=== PATIENT | male | born 1960 | race Caucasian/White ===

== ENCOUNTER 2022-12-12 16:10 | Inpatient (IN) | payer BC ==
[~2022-12-12] VITALS: Ht 177.8 cm; Wt 127.0 kg
[2022-12-12] MEDS ORDERED: SODIUM CHLORIDE 0.9% 1000ML 1,000 ML IV STA (16:36)
[2022-12-12 16:44] LABS: BASOPHILS % 0.4 % (0.0-1.0); EOSINOPHILS # (AUTO) 0.3 (0.0-0.4); EOSINOPHILS % 2.7 % (0.0-6.0); HEMATOCRIT 39.8 % (38.2-49.6); HEMOGLOBIN 12.9 g/dL (14.0-18.0); LYMPHOCYTES # (AUTO) 1.3 (1.0-3.2); LYMPHOCYTES % 14.1 % (18.0-39.1); MEAN CORPUSCULAR HEMOGLOBIN 27.8 pg (28-32); MEAN CORPUSCULAR HGB CONC 32.4 g/dL (31-35); MEAN CORPUSCULAR VOLUME 85.8 fL (81-99); MONOCYTES # (AUTO) 0.8 (0.2-0.8); MONOCYTES % 8.5 % (4.4-11.3); NEUTROPHILS % 73.9 % (38.7-80.0); PLATELET COUNT 197 x10e3/uL (140-360); RED BLOOD COUNT 4.64 x10e6/uL (4.3-5.7); RED CELL DISTRIBUTION WIDTH 13.2 % (11.7-14.4)
[2022-12-12 16:56] LABS: ALBUMIN 3.8 g/dL (3.5-5.0); ANION GAP 14.1 mmol/L (8-16); CALCIUM 9.9 mg/dL (8.4-10.2); CREATININE, SERUM 0.85 mg/dL (0.72-1.25); POTASSIUM 4.1 mmol/L (3.5-5.1)
[2022-12-12 17:19] LABS: CLARITY,URINE CLOUDY (CLEAR); COLOR,URINE RED (YELLOW); KETONES,URINE TRACE (NEGATIVE); LEUKOCYTE ESTERASE ,URINE NEGATIVE (NEGATIVE); NITRITE,URINE NEGATIVE (NEGATIVE); PROTEIN,URINE DIPSTICK >=300 (NEGATIVE); URINE UROBILINOGEN 0.2 mg/dL (0.2 - 1)
[2022-12-12 17:20] LABS: BACTERIA,URINE FEW /HPF; RBC,URINE >50 /HPF (0-5)
[2022-12-12] MEDS ORDERED: Morphine 4mg INJECTION 4 MG/ML INJ IV PRN (18:30)
[2022-12-12 19:28] LABS: CREATINE KINASE MB 2.6 ng/mL (0-5.0)
[2022-12-12 20:15] VITALS: BP 147/87
[2022-12-12] MEDS ORDERED: ASPIRIN 81 MG CHEW TAB PO ONE (20:15)
[2022-12-12] MEDS: SODIUM CHLORIDE 0.9% 1000ML 1,000 ML IV SCH (21:25)
[2022-12-12] MEDS ORDERED: GLIMEPIRIDE4 MG PO (22:30)
[2022-12-12] MEDS ORDERED: NAPROXEN500 MG PO (22:30)
[2022-12-12] MEDS ORDERED: LISINOPRIL5 MG PO (22:30)
[2022-12-12] MEDS ORDERED: METFORMIN HCL500 MG PO (22:30)
[2022-12-12 22:51] VITALS: BP 147/87
[2022-12-13] VITALS (9 sets, daily range): BP systolic 119–162; BP diastolic 76–109
[2022-12-13] MEDS ORDERED: DEXTROSE 50% SYRINGE 50 ML IV PRN
[2022-12-13 00:37] LABS: CREATINE KINASE MB 1.5 ng/mL (0-5.0)
[2022-12-13 05:28] LABS: BASOPHILS % 0.3 % (0.0-1.0); EOSINOPHILS # (AUTO) 0.3 (0.0-0.4); EOSINOPHILS % 3.7 % (0.0-6.0); HEMATOCRIT 34.6 % (38.2-49.6); HEMOGLOBIN 11.6 g/dL (14.0-18.0); LYMPHOCYTES # (AUTO) 1.5 (1.0-3.2); LYMPHOCYTES % 17.5 % (18.0-39.1); MEAN CORPUSCULAR HEMOGLOBIN 28.3 pg (28-32); MEAN CORPUSCULAR HGB CONC 33.5 g/dL (31-35); MEAN CORPUSCULAR VOLUME 84.4 fL (81-99); MONOCYTES # (AUTO) 0.7 (0.2-0.8); MONOCYTES % 7.8 % (4.4-11.3); NEUTROPHILS # (AUTO) 6.2 (2.1-6.9); NEUTROPHILS % 70.6 % (38.7-80.0); PLATELET COUNT 161 x10e3/uL (140-360); RED CELL DISTRIBUTION WIDTH 13.4 % (11.7-14.4)
[2022-12-13] MEDS: SODIUM CHLORIDE 0.9% 1000ML 1,000 ML IV SCH ×3 (05:32→18:30)
[2022-12-13 05:54] LABS: MAGNESIUM 1.8 MG/DL (1.3-2.1)
[2022-12-13 05:57] LABS: ALBUMIN 3.2 g/dL (3.5-5.0); ALBUMIN/GLOBULIN RATIO 0.9 (0.8-2.0); ANION GAP 12.9 mmol/L (8-16); CALCIUM 8.9 mg/dL (8.4-10.2); CREATININE, SERUM 0.8 mg/dL (0.72-1.25); POTASSIUM 3.9 mmol/L (3.5-5.1)
[2022-12-13] MEDS: INSULIN LISPRO 100 UNIT/1 ML 3ML VIAL SQ SCH ×4 (07:30→21:00)
[2022-12-13 08:17] LABS: CREATINE KINASE MB 1.2 ng/mL (0-5.0)
[2022-12-14] VITALS (7 sets, daily range): BP systolic 143–162; BP diastolic 74–109
[2022-12-14] MEDS: SODIUM CHLORIDE 0.9% 1000ML 1,000 ML IV SCH ×3 (02:07→18:30)
[2022-12-14] MEDS: INSULIN LISPRO 100 UNIT/1 ML 3ML VIAL SQ SCH ×4 (07:30→21:00)
[2022-12-14] MEDS ORDERED: PEG (High)/E-LYTE SOLN 4,000 ML BTL PO ONE (09:00)
[2022-12-14 10:19] LABS: BASOPHILS % 0.6 % (0.0-1.0); EOSINOPHILS # (AUTO) 0.3 (0.0-0.4); EOSINOPHILS % 5.1 % (0.0-6.0); HEMATOCRIT 36.8 % (38.2-49.6); LYMPHOCYTES # (AUTO) 1.4 (1.0-3.2); LYMPHOCYTES % 20.2 % (18.0-39.1); MEAN CORPUSCULAR HEMOGLOBIN 27.7 pg (28-32); MEAN CORPUSCULAR HGB CONC 32.6 g/dL (31-35); MONOCYTES # (AUTO) 0.4 (0.2-0.8); MONOCYTES % 6.6 % (4.4-11.3); NEUTROPHILS # (AUTO) 4.5 (2.1-6.9); NEUTROPHILS % 67.2 % (38.7-80.0); PLATELET COUNT 165 x10e3/uL (140-360); RED BLOOD COUNT 4.33 x10e6/uL (4.3-5.7); RED CELL DISTRIBUTION WIDTH 12.9 % (11.7-14.4)
[2022-12-14 10:32] LABS: ALBUMIN 3.3 g/dL (3.5-5.0); ALBUMIN/GLOBULIN RATIO 0.9 (0.8-2.0); CALCIUM 9.3 mg/dL (8.4-10.2); CREATININE, SERUM 0.76 mg/dL (0.72-1.25); MAGNESIUM 1.9 MG/DL (1.3-2.1)
[2022-12-14] MEDS ORDERED: CYANOCOBALAMIN INJ 1,000 MCG/ML VIAL IM ONE (23:30)
[2022-12-15] VITALS (9 sets, daily range): BP systolic 128–148; BP diastolic 90–99
[2022-12-15] MEDS: SODIUM CHLORIDE 0.9% 1000ML 1,000 ML IV SCH ×3 (06:24→18:00)
[2022-12-15 07:01] LABS: BASOPHILS % 0.5 % (0.0-1.0); EOSINOPHILS # (AUTO) 0.4 (0.0-0.4); EOSINOPHILS % 5.8 % (0.0-6.0); HEMATOCRIT 34.9 % (38.2-49.6); HEMOGLOBIN 12.1 g/dL (14.0-18.0); LYMPHOCYTES # (AUTO) 1.5 (1.0-3.2); LYMPHOCYTES % 22.2 % (18.0-39.1); MEAN CORPUSCULAR HEMOGLOBIN 30.5 pg (28-32); MEAN CORPUSCULAR HGB CONC 34.7 g/dL (31-35); MEAN CORPUSCULAR VOLUME 87.9 fL (81-99); MONOCYTES # (AUTO) 0.5 (0.2-0.8); MONOCYTES % 7.1 % (4.4-11.3); NEUTROPHILS # (AUTO) 4.2 (2.1-6.9); NEUTROPHILS % 63.9 % (38.7-80.0); PLATELET COUNT 145 x10e3/uL (140-360); RED BLOOD COUNT 3.97 x10e6/uL (4.3-5.7); RED CELL DISTRIBUTION WIDTH 14.5 % (11.7-14.4)
[2022-12-15 07:19] LABS: ALBUMIN 3.1 g/dL (3.5-5.0); ALBUMIN/GLOBULIN RATIO 0.8 (0.8-2.0); ANION GAP 12.6 mmol/L (8-16); CALCIUM 8.9 mg/dL (8.4-10.2); CREATININE, SERUM 0.75 mg/dL (0.72-1.25); MAGNESIUM 1.9 MG/DL (1.3-2.1); POTASSIUM 3.6 mmol/L (3.5-5.1)
[2022-12-15] MEDS: INSULIN LISPRO 100 UNIT/1 ML 3ML VIAL SQ SCH ×4 (07:30→20:37)
[2022-12-15] MEDS: CYANOCOBALAMIN INJ 1,000 MCG/ML VIAL IM SCH (09:00)
[2022-12-15] MEDS ORDERED: IRON SUCROSE 100 MG in SODIUM CHLORIDE 0.9% 100 ML IV SCH (09:00)
[2022-12-16] VITALS (8 sets, daily range): BP systolic 128–156; BP diastolic 79–94
[2022-12-16] MEDS: SODIUM CHLORIDE 0.9% 1000ML 1,000 ML IV SCH (02:21)
[2022-12-16 05:15] LABS: BASOPHILS % 0.7 % (0.0-1.0); EOSINOPHILS # (AUTO) 0.3 (0.0-0.4); HEMATOCRIT 38.1 % (38.2-49.6); HEMOGLOBIN 12.2 g/dL (14.0-18.0); LYMPHOCYTES # (AUTO) 1.5 (1.0-3.2); MEAN CORPUSCULAR HEMOGLOBIN 27.5 pg (28-32); MEAN CORPUSCULAR VOLUME 85.8 fL (81-99); MONOCYTES # (AUTO) 0.4 (0.2-0.8); NEUTROPHILS # (AUTO) 3.8 (2.1-6.9); PLATELET COUNT 186 x10e3/uL (140-360); RED BLOOD COUNT 4.44 x10e6/uL (4.3-5.7); RED CELL DISTRIBUTION WIDTH 12.8 % (11.7-14.4)
[2022-12-16 05:26] LABS: INR 1.14; PROTHROMBIN TIME 14.8 seconds (11.9-14.5)
[2022-12-16 05:36] LABS: ALBUMIN 3.2 g/dL (3.5-5.0); ALBUMIN/GLOBULIN RATIO 0.9 (0.8-2.0); ANION GAP 12.4 mmol/L (8-16); CREATININE, SERUM 0.83 mg/dL (0.72-1.25); MAGNESIUM 1.9 MG/DL (1.3-2.1); POTASSIUM 3.4 mmol/L (3.5-5.1)
[2022-12-16] MEDS: INSULIN LISPRO 100 UNIT/1 ML 3ML VIAL SQ SCH ×4 (07:30→20:36)
[2022-12-16] MEDS: DEXTROSE 5%/0.45% SOD CHL 1,000 ML IV SCH ×2 (09:15→20:30)
[2022-12-16] MEDS: CYANOCOBALAMIN INJ 1,000 MCG/ML VIAL IM SCH (09:19)
[2022-12-16] MEDS: POTASSIUM CHLORIDE 10MEQ/100ML 100 ML IV SCH ×3 (12:39→16:59)
[2022-12-16] MEDS: IRON SUCROSE 100 MG in SODIUM CHLORIDE 0.9% 100 ML IV SCH (17:41)
[2022-12-16] MEDS ORDERED: METRONIDAZOLE 500 MG TAB PO ONE (20:15)
[2022-12-16] MEDS ORDERED: NEOMYCIN SULFATE 500 MG TAB PO ONE (20:15)
[2022-12-16] MEDS: NEOMYCIN SULFATE 500 MG TAB PO ONE (20:25)
[2022-12-17] VITALS (9 sets, daily range): BP systolic 124–140; BP diastolic 72–97
[2022-12-17] MEDS ORDERED: NEOMYCIN SULFATE 500 MG TAB PO STA (05:36)
[2022-12-17] MEDS: NEOMYCIN SULFATE 500 MG TAB PO ONE (05:45)
[2022-12-17 05:48] LABS: BASOPHILS # (AUTO) 0.1 (0.0-0.1); BASOPHILS % 0.8 % (0.0-1.0); EOSINOPHILS # (AUTO) 0.4 (0.0-0.4); EOSINOPHILS % 5.3 % (0.0-6.0); HEMATOCRIT 38.2 % (38.2-49.6); HEMOGLOBIN 12.4 g/dL (14.0-18.0); LYMPHOCYTES # (AUTO) 1.5 (1.0-3.2); LYMPHOCYTES % 22.3 % (18.0-39.1); MEAN CORPUSCULAR HEMOGLOBIN 27.9 pg (28-32); MEAN CORPUSCULAR HGB CONC 32.5 g/dL (31-35); MEAN CORPUSCULAR VOLUME 85.8 fL (81-99); MONOCYTES # (AUTO) 0.5 (0.2-0.8); MONOCYTES % 7.3 % (4.4-11.3); NEUTROPHILS # (AUTO) 4.2 (2.1-6.9); NEUTROPHILS % 63.7 % (38.7-80.0); PLATELET COUNT 191 x10e3/uL (140-360); RED BLOOD COUNT 4.45 x10e6/uL (4.3-5.7); RED CELL DISTRIBUTION WIDTH 12.9 % (11.7-14.4)
[2022-12-17] MEDS ORDERED: METRONIDAZOLE 500 MG TAB PO ONE (06:00)
[2022-12-17 06:11] LABS: ALANINE AMINOTRANSFERASE 49 IU/L (0-55); ALBUMIN 3.2 g/dL (3.5-5.0); ALBUMIN/GLOBULIN RATIO 0.9 (0.8-2.0); ALKALINE PHOSPHATASE 74 IU/L (40-150); ANION GAP 12.3 mmol/L (8-16); BLOOD UREA NITROGEN < 5 mg/dL (7-26); CARBON DIOXIDE 21 mmol/L (22-29); CHLORIDE 107 mmol/L (98-107); CREATININE, SERUM 0.79 mg/dL (0.72-1.25); GLUCOSE 153 mg/dL (74-118); MAGNESIUM 1.8 MG/DL (1.3-2.1); POTASSIUM 3.3 mmol/L (3.5-5.1); SODIUM 137 mmol/L (136-145)
[2022-12-17 06:12] LABS: BUN/CREATININE RATIO 6 (6-25)
[2022-12-17] MEDS: INSULIN LISPRO 100 UNIT/1 ML 3ML VIAL SQ SCH ×4 (07:30→22:23)
[2022-12-17] MEDS ORDERED: MINERAL OIL STERILE 10ML VIAL ONE (09:08)
[2022-12-17] MEDS ORDERED: BUPIVACAINE 0.5%/EPI 30 ML SDV INJ ONE (09:09)
[2022-12-17] MEDS ORDERED: PIPERACILLIN/TAZOBACTAM 3.375 GM VIAL ONE (09:16)
[2022-12-17 10:22] LABS: BASOPHILS # (AUTO) 0.1 (0.0-0.1); BASOPHILS % 0.8 % (0.0-1.0); EOSINOPHILS # (AUTO) 0.3 (0.0-0.4); EOSINOPHILS % 4.1 % (0.0-6.0); HEMATOCRIT 36.6 % (38.2-49.6); HEMOGLOBIN 12.7 g/dL (14.0-18.0); LYMPHOCYTES # (AUTO) 1.3 (1.0-3.2); LYMPHOCYTES % 20.8 % (18.0-39.1); MEAN CORPUSCULAR HEMOGLOBIN 30.4 pg (28-32); MEAN CORPUSCULAR HGB CONC 34.7 g/dL (31-35); MEAN CORPUSCULAR VOLUME 87.6 fL (81-99); MONOCYTES # (AUTO) 0.3 (0.2-0.8); MONOCYTES % 5.3 % (4.4-11.3); NEUTROPHILS # (AUTO) 4.4 (2.1-6.9); NEUTROPHILS % 68.5 % (38.7-80.0); PLATELET COUNT 185 x10e3/uL (140-360); RED BLOOD COUNT 4.18 x10e6/uL (4.3-5.7); RED CELL DISTRIBUTION WIDTH 15.9 % (11.7-14.4)
[2022-12-17 10:40] LABS: ALANINE AMINOTRANSFERASE 59 IU/L (0-55); ALBUMIN 3.5 g/dL (3.5-5.0); ALBUMIN/GLOBULIN RATIO 0.9 (0.8-2.0); ALKALINE PHOSPHATASE 88 IU/L (40-150); ANION GAP 12.6 mmol/L (8-16); BLOOD UREA NITROGEN < 5 mg/dL (7-26); CALCIUM 9.2 mg/dL (8.4-10.2); CARBON DIOXIDE 20 mmol/L (22-29); CHLORIDE 109 mmol/L (98-107); CREATININE, SERUM 0.74 mg/dL (0.72-1.25); GLUCOSE 125 mg/dL (74-118); MAGNESIUM 1.9 MG/DL (1.3-2.1); POTASSIUM 3.6 mmol/L (3.5-5.1); SODIUM 138 mmol/L (136-145)
[2022-12-17 10:41] LABS: BUN/CREATININE RATIO 7 (6-25)
[2022-12-17] MEDS: DEXTROSE 5%/0.45% SOD CHL 1,000 ML IV SCH (10:53)
[2022-12-17] MEDS: CYANOCOBALAMIN INJ 1,000 MCG/ML VIAL IM SCH (10:53)
[2022-12-17] MEDS ORDERED: MAGNESIUM OXIDE 400 MG TAB PO ONE (13:00)
[2022-12-17] MEDS ORDERED: POTASSIUM CHLORIDE 20 MEQ TAB CR PO ONE (14:00)
[2022-12-17] MEDS ORDERED: HEPARIN 25,000U/0.45% NS 250ML 250 ML IV SCH ×2 (17:15→19:15)
[2022-12-17] MEDS ORDERED: HEPARIN SOD (PORCINE) 5,000 UNIT/ML VIAL IV ONE (17:15)
[2022-12-17 17:31] LABS: INR 1.11; PROTHROMBIN TIME 14.5 seconds (11.9-14.5)
[2022-12-17 17:32] LABS: PARTIAL THROMBOPLASTIN TIME 30.3 seconds (23.8-35.5)
[2022-12-17] MEDS: IRON SUCROSE 100 MG in SODIUM CHLORIDE 0.9% 100 ML IV SCH (18:05)
[2022-12-17] MEDS ORDERED: HEPARIN SOD (PORCINE) 1000 UNIT/ML SDV IV ONE (19:15)
[2022-12-17] MEDS: ATORVASTATIN 40 MG TAB PO SCH (22:21)
[2022-12-18] VITALS (8 sets, daily range): BP systolic 125–153; BP diastolic 80–98
[2022-12-18] MEDS: DEXTROSE 5%/0.45% SOD CHL 1,000 ML IV SCH (02:42)
[2022-12-18] MEDS: HEPARIN 25,000U/0.45% NS 250ML 250 ML IV SCH ×2 (03:36→18:04)
[2022-12-18] MEDS: INSULIN LISPRO 100 UNIT/1 ML 3ML VIAL SQ SCH ×4 (07:30→21:09)
[2022-12-18 08:45] LABS: BASOPHILS # (AUTO) 0.1 (0.0-0.1); BASOPHILS % 0.9 % (0.0-1.0); EOSINOPHILS # (AUTO) 0.3 (0.0-0.4); EOSINOPHILS % 4.6 % (0.0-6.0); HEMATOCRIT 39.5 % (38.2-49.6); HEMOGLOBIN 12.6 g/dL (14.0-18.0); LYMPHOCYTES # (AUTO) 1.6 (1.0-3.2); LYMPHOCYTES % 23.8 % (18.0-39.1); MEAN CORPUSCULAR HEMOGLOBIN 27.3 pg (28-32); MEAN CORPUSCULAR HGB CONC 31.9 g/dL (31-35); MEAN CORPUSCULAR VOLUME 85.7 fL (81-99); MONOCYTES # (AUTO) 0.4 (0.2-0.8); NEUTROPHILS # (AUTO) 4.2 (2.1-6.9); NEUTROPHILS % 64.4 % (38.7-80.0); PLATELET COUNT 215 x10e3/uL (140-360); RED BLOOD COUNT 4.61 x10e6/uL (4.3-5.7); RED CELL DISTRIBUTION WIDTH 13.2 % (11.7-14.4)
[2022-12-18 09:09] LABS: ALBUMIN 3.3 g/dL (3.5-5.0); ALBUMIN/GLOBULIN RATIO 0.9 (0.8-2.0); ANION GAP 12.8 mmol/L (8-16); CALCIUM 9.2 mg/dL (8.4-10.2); CREATININE, SERUM 0.8 mg/dL (0.72-1.25); MAGNESIUM 1.9 MG/DL (1.3-2.1); POTASSIUM 3.8 mmol/L (3.5-5.1)
[2022-12-18] MEDS: CYANOCOBALAMIN INJ 1,000 MCG/ML VIAL IM SCH (10:42)
[2022-12-18] MEDS: LOSARTAN POTASSIUM 25 MG TAB PO SCH (10:42)
[2022-12-18] MEDS: IRON SUCROSE 100 MG in SODIUM CHLORIDE 0.9% 100 ML IV SCH (17:03)
[2022-12-18] MEDS: ATORVASTATIN 40 MG TAB PO SCH (20:56)
[2022-12-19] VITALS (8 sets, daily range): BP systolic 116–138; BP diastolic 70–94
[2022-12-19] MEDS: INSULIN LISPRO 100 UNIT/1 ML 3ML VIAL SQ SCH ×4 (08:45→21:00)
[2022-12-19] MEDS ORDERED: PEG (High)/E-LYTE SOLN 4,000 ML BTL PO ONE (09:00)
[2022-12-19] MEDS: HEPARIN 25,000U/0.45% NS 250ML 250 ML IV SCH ×2 (09:04→23:37)
[2022-12-19] MEDS: SPIRONOLACTONE 25 MG TAB PO SCH (09:04)
[2022-12-19] MEDS: LOSARTAN POTASSIUM 25 MG TAB PO SCH (09:05)
[2022-12-19] MEDS: CYANOCOBALAMIN INJ 1,000 MCG/ML VIAL IM SCH (09:05)
[2022-12-19] MEDS: IRON SUCROSE 100 MG in SODIUM CHLORIDE 0.9% 100 ML IV SCH (15:23)
[2022-12-19] MEDS: METRONIDAZOLE 500 MG TAB PO SCH ×2 (17:14→21:13)
[2022-12-19] MEDS: NEOMYCIN SULFATE 500 MG TAB PO SCH ×2 (17:14→23:33)
[2022-12-19] MEDS: ATORVASTATIN 40 MG TAB PO SCH (21:13)
[2022-12-20] VITALS (8 sets, daily range): BP systolic 98–150; BP diastolic 51–95
[2022-12-20 04:51] LABS: BASOPHILS % 0.6 % (0.0-1.0); EOSINOPHILS % 3.2 % (0.0-6.0); HEMATOCRIT 39.8 % (38.2-49.6); HEMOGLOBIN 12.6 g/dL (14.0-18.0); LYMPHOCYTES # (AUTO) 1.8 (1.0-3.2); LYMPHOCYTES % 21.6 % (18.0-39.1); MEAN CORPUSCULAR HEMOGLOBIN 27.3 pg (28-32); MEAN CORPUSCULAR HGB CONC 31.7 g/dL (31-35); MEAN CORPUSCULAR VOLUME 86.1 fL (81-99); NEUTROPHILS # (AUTO) 5.7 (2.1-6.9); NEUTROPHILS % 68.2 % (38.7-80.0); PLATELET COUNT 201 x10e3/uL (140-360); RED BLOOD COUNT 4.62 x10e6/uL (4.3-5.7); RED CELL DISTRIBUTION WIDTH 13.2 % (11.7-14.4)
[2022-12-20 04:52] LABS: BASOPHILS # (AUTO) 0.1 (0.0-0.1); EOSINOPHILS # (AUTO) 0.3 (0.0-0.4); MONOCYTES # (AUTO) 0.5 (0.2-0.8)
[2022-12-20 05:18] LABS: ALBUMIN 3.3 g/dL (3.5-5.0); ANION GAP 13.4 mmol/L (8-16); CALCIUM 9.3 mg/dL (8.4-10.2); CREATININE, SERUM 0.75 mg/dL (0.72-1.25); MAGNESIUM 1.9 MG/DL (1.3-2.1); POTASSIUM 3.4 mmol/L (3.5-5.1)
[2022-12-20] MEDS: METRONIDAZOLE 500 MG TAB PO SCH (06:00)
[2022-12-20] MEDS: NEOMYCIN SULFATE 500 MG TAB PO SCH (06:00)
[2022-12-20] MEDS: INSULIN LISPRO 100 UNIT/1 ML 3ML VIAL SQ SCH ×4 (07:30→21:00)
[2022-12-20] MEDS: SPIRONOLACTONE 25 MG TAB PO SCH (09:00)
[2022-12-20] MEDS: LOSARTAN POTASSIUM 25 MG TAB PO SCH (09:00)
[2022-12-20] MEDS: CYANOCOBALAMIN INJ 1,000 MCG/ML VIAL IM SCH (09:01)
[2022-12-20] MEDS: POTASSIUM CHLORIDE 10MEQ/100ML 100 ML IV SCH ×3 (09:07→12:40)
[2022-12-20] MEDS ORDERED: SODIUM CHLORIDE 0.9% 500ML 500 ML ONE (10:29)
[2022-12-20] MEDS ORDERED: FENTANYL CITRATE/PF 100MCG/2 ML INJ ONE ×2 (12:28→17:39)
[2022-12-20] MEDS ORDERED: MIDAZOLAM HCL 2 MG/2 ML VIAL ONE (12:28)
[2022-12-20] MEDS ORDERED: BUPIVACAINE 0.5%/EPI 30 ML SDV INJ ONE (13:09)
[2022-12-20] MEDS ORDERED: IOPAMIDOL 370 MG/ML 100 ML INFUS..BTL INJ ONE (13:10)
[2022-12-20] MEDS ORDERED: HYDROMORPHONE 1MG/1ML INJ ONE ×2 (17:29→18:02)
[2022-12-20] MEDS ORDERED: ONDANSETRON HCL INJ 2MG/ML 2ML 2 MG/ML VIAL ONE (17:39)
[2022-12-20] MEDS ORDERED: PROMETHAZINE HCL (IM) 25 MG/ML VIAL IM ONE (18:01)
[2022-12-20] MEDS: LACTATED RINGER'S 1,000 ML INJ SCH (19:48)
[2022-12-20] MEDS: ATORVASTATIN 40 MG TAB PO SCH (20:01)
[2022-12-20] MEDS: HYDROMORPHONE 1MG/1ML INJ IV PRN (22:37)
[2022-12-21] VITALS (8 sets, daily range): BP systolic 121–141; BP diastolic 70–91
[2022-12-21] MEDS: HYDROMORPHONE 1MG/1ML INJ IV PRN ×5 (03:08→22:56)
[2022-12-21 06:19] LABS: BASOPHILS % 0.3 % (0.0-1.0); EOSINOPHILS % 0.5 % (0.0-6.0); HEMATOCRIT 41.1 % (38.2-49.6); HEMOGLOBIN 13.2 g/dL (14.0-18.0); LYMPHOCYTES # (AUTO) 1.1 (1.0-3.2); LYMPHOCYTES % 12.7 % (18.0-39.1); MEAN CORPUSCULAR HEMOGLOBIN 27.7 pg (28-32); MEAN CORPUSCULAR HGB CONC 32.1 g/dL (31-35); MEAN CORPUSCULAR VOLUME 86.2 fL (81-99); MONOCYTES # (AUTO) 0.7 (0.2-0.8); MONOCYTES % 8.1 % (4.4-11.3); NEUTROPHILS # (AUTO) 6.8 (2.1-6.9); NEUTROPHILS % 77.9 % (38.7-80.0); PLATELET COUNT 229 x10e3/uL (140-360); RED BLOOD COUNT 4.77 x10e6/uL (4.3-5.7); RED CELL DISTRIBUTION WIDTH 13.4 % (11.7-14.4)
[2022-12-21] MEDS: LACTATED RINGER'S 1,000 ML INJ SCH ×3 (06:30→17:03)
[2022-12-21 06:49] LABS: ALBUMIN 3.2 g/dL (3.5-5.0); ALBUMIN/GLOBULIN RATIO 0.9 (0.8-2.0); ANION GAP 12.7 mmol/L (8-16); CALCIUM 8.6 mg/dL (8.4-10.2); CREATININE, SERUM 0.79 mg/dL (0.72-1.25); MAGNESIUM 1.7 MG/DL (1.3-2.1); POTASSIUM 3.7 mmol/L (3.5-5.1)
[2022-12-21] MEDS: INSULIN LISPRO 100 UNIT/1 ML 3ML VIAL SQ SCH ×4 (07:30→21:01)
[2022-12-21] MEDS: CYANOCOBALAMIN INJ 1,000 MCG/ML VIAL IM SCH (07:56)
[2022-12-21] MEDS: SPIRONOLACTONE 25 MG TAB PO SCH (07:57)
[2022-12-21] MEDS: LOSARTAN POTASSIUM 25 MG TAB PO SCH (07:58)
[2022-12-21] MEDS ORDERED: ENOXAPARIN SOD INJ 40 MG/0.4 ML SYR SC SCH (17:00)
[2022-12-21] MEDS ORDERED: ACETAMINOPHEN 325 MG TAB PO PRN (18:15)
[2022-12-21] MEDS: ATORVASTATIN 40 MG TAB PO SCH (20:48)
[2022-12-22] VITALS (8 sets, daily range): BP systolic 116–160; BP diastolic 79–99
[2022-12-22] MEDS: LACTATED RINGER'S 1,000 ML INJ SCH ×4 (02:56→22:38)
[2022-12-22] MEDS: HYDROMORPHONE 1MG/1ML INJ IV PRN ×4 (02:57→19:58)
[2022-12-22 05:45] LABS: BASOPHILS % 0.4 % (0.0-1.0); EOSINOPHILS # (AUTO) 0.2 (0.0-0.4); EOSINOPHILS % 2.1 % (0.0-6.0); HEMATOCRIT 41.1 % (38.2-49.6); HEMOGLOBIN 13.3 g/dL (14.0-18.0); LYMPHOCYTES # (AUTO) 1.3 (1.0-3.2); MEAN CORPUSCULAR HEMOGLOBIN 28.2 pg (28-32); MEAN CORPUSCULAR HGB CONC 32.4 g/dL (31-35); MEAN CORPUSCULAR VOLUME 87.1 fL (81-99); MONOCYTES # (AUTO) 0.7 (0.2-0.8); MONOCYTES % 7.6 % (4.4-11.3); NEUTROPHILS # (AUTO) 7.4 (2.1-6.9); NEUTROPHILS % 76.6 % (38.7-80.0); PLATELET COUNT 241 x10e3/uL (140-360); RED BLOOD COUNT 4.72 x10e6/uL (4.3-5.7); RED CELL DISTRIBUTION WIDTH 13.8 % (11.7-14.4)
[2022-12-22 06:06] LABS: ALBUMIN/GLOBULIN RATIO 0.8 (0.8-2.0); ANION GAP 15.7 mmol/L (8-16); CALCIUM 9.6 mg/dL (8.4-10.2); CREATININE, SERUM 0.8 mg/dL (0.72-1.25); POTASSIUM 3.7 mmol/L (3.5-5.1)
[2022-12-22] MEDS: INSULIN LISPRO 100 UNIT/1 ML 3ML VIAL SQ SCH ×4 (07:30→20:58)
[2022-12-22] MEDS: CYANOCOBALAMIN INJ 1,000 MCG/ML VIAL IM SCH (07:41)
[2022-12-22] MEDS: IRON-VITAMIN-MINERAL CAPSULE PO SCH ×2 (07:41→16:11)
[2022-12-22] MEDS: SPIRONOLACTONE 25 MG TAB PO SCH (07:42)
[2022-12-22] MEDS: LOSARTAN POTASSIUM 25 MG TAB PO SCH (07:42)
[2022-12-22] MEDS: ONDANSETRON HCL INJ 2MG/ML 2ML 2 MG/ML VIAL IV PRN ×5 (07:51→23:59)
[2022-12-22] MEDS: HYDROCODONE/APAP 5MG-325MG TAB PO PRN (12:18)
[2022-12-22 15:17] LABS: INR 1.18; PROTHROMBIN TIME 15.2 seconds (11.9-14.5)
[2022-12-22] MEDS ORDERED: HEPARIN 25,000 UNIT/D5W 250ML 1,500 UNIT in DEXTROSE 5% 250ML 250 ML IV SCH (16:00)
[2022-12-22] MEDS: ATORVASTATIN 40 MG TAB PO SCH (20:55)
[2022-12-22] MEDS ORDERED: CEPACOL SORE THROAT LOZENGES PO PRN (23:00)
[2022-12-23] VITALS (7 sets, daily range): BP systolic 122–152; BP diastolic 80–97
[2022-12-23] MEDS: ONDANSETRON HCL INJ 2MG/ML 2ML 2 MG/ML VIAL IV PRN ×5 (04:17→21:18)
[2022-12-23] MEDS: HYDROMORPHONE 1MG/1ML INJ IV PRN ×6 (04:18→21:08)
[2022-12-23 06:40] LABS: BASOPHILS # (AUTO) 0.1 (0.0-0.1); BASOPHILS % 0.5 % (0.0-1.0); EOSINOPHILS # (AUTO) 0.3 (0.0-0.4); EOSINOPHILS % 2.6 % (0.0-6.0); HEMATOCRIT 41.1 % (38.2-49.6); LYMPHOCYTES # (AUTO) 1.8 (1.0-3.2); LYMPHOCYTES % 15.6 % (18.0-39.1); MEAN CORPUSCULAR HEMOGLOBIN 27.5 pg (28-32); MEAN CORPUSCULAR HGB CONC 31.6 g/dL (31-35); MEAN CORPUSCULAR VOLUME 86.9 fL (81-99); MONOCYTES # (AUTO) 0.8 (0.2-0.8); MONOCYTES % 6.7 % (4.4-11.3); NEUTROPHILS # (AUTO) 8.4 (2.1-6.9); NEUTROPHILS % 74.3 % (38.7-80.0); PLATELET COUNT 243 x10e3/uL (140-360); RED BLOOD COUNT 4.73 x10e6/uL (4.3-5.7); RED CELL DISTRIBUTION WIDTH 13.9 % (11.7-14.4)
[2022-12-23 07:11] LABS: ALBUMIN 2.9 g/dL (3.5-5.0); ALBUMIN/GLOBULIN RATIO 0.8 (0.8-2.0); ANION GAP 11.6 mmol/L (8-16); CALCIUM 9.5 mg/dL (8.4-10.2); CREATININE, SERUM 0.75 mg/dL (0.72-1.25); POTASSIUM 3.6 mmol/L (3.5-5.1)
[2022-12-23] MEDS: INSULIN LISPRO 100 UNIT/1 ML 3ML VIAL SQ SCH ×5 (07:30→21:00)
[2022-12-23] MEDS: LACTATED RINGER'S 1,000 ML INJ SCH ×2 (09:28→21:07)
[2022-12-23] MEDS: CYANOCOBALAMIN INJ 1,000 MCG/ML VIAL IM SCH (09:35)
[2022-12-23] MEDS: IRON-VITAMIN-MINERAL CAPSULE PO SCH ×2 (09:35→17:03)
[2022-12-23] MEDS: LOSARTAN POTASSIUM 25 MG TAB PO SCH (09:35)
[2022-12-23] MEDS: SPIRONOLACTONE 25 MG TAB PO SCH (09:36)
[2022-12-23] MEDS ORDERED: HEPARIN 25,000 UNIT/D5W 250ML 250 ML IV SCH (10:00)
[2022-12-23] MEDS ORDERED: BISACODYL 10 MG SUPP PR ONE (10:15)
[2022-12-23] MEDS: HEPARIN 25,000 UNIT/D5W 250ML 250 ML IV SCH (10:22)
[2022-12-23] MEDS ORDERED: ONDANSETRON HCL INJ 2MG/ML 2ML 2 MG/ML VIAL ONE (12:44)
[2022-12-23] MEDS ORDERED: DEXAMETHASONE SOD PHOS INJ 4 MG/ML SDV ONE (12:44)
[2022-12-23] MEDS ORDERED: LIDOCAINE HCL 2% LOCAL INJ 5 ML SDV VIAL INJ ONE (12:44)
[2022-12-23] MEDS ORDERED: SUCCINYLCHOLINE CHLORIDE 20 MG/ML 10ML VIAL ONE (12:44)
[2022-12-23] MEDS ORDERED: SEVOFLURANE INHAL SOLN 250 ML PEN BTL ONE (12:44)
[2022-12-23] MEDS ORDERED: PROPOFOL IV EMULSION 10 MG/ML 20 ML VIAL ONE (12:44)
[2022-12-23] MEDS ORDERED: POVIDONE IODINE 0.05% 0.05 % ML PO ONE (12:44)
[2022-12-23] MEDS ORDERED: LABETALOL HCL 5 MG/ML 20ML VIAL ONE (12:44)
[2022-12-23] MEDS ORDERED: GLYCOPYRROLATE INJ 0.2 MG/ML VIAL ONE (12:44)
[2022-12-23] MEDS ORDERED: NEOSTIGMINE 1 MG/ML 10ML VIAL ONE (12:44)
[2022-12-23] MEDS ORDERED: ROCURONIUM BROMIDE 10 MG/ML 5ML VIAL IV ONE (12:44)
[2022-12-23] MEDS: ATORVASTATIN 40 MG TAB PO SCH (21:06)
[2022-12-24] VITALS (7 sets, daily range): BP systolic 124–136; BP diastolic 73–88
[2022-12-24] MEDS: HEPARIN 25,000 UNIT/D5W 250ML 250 ML IV SCH ×2 (02:49→23:07)
[2022-12-24] MEDS: ONDANSETRON HCL INJ 2MG/ML 2ML 2 MG/ML VIAL IV PRN ×5 (04:12→22:32)
[2022-12-24] MEDS: HYDROMORPHONE 1MG/1ML INJ IV PRN ×5 (04:14→22:33)
[2022-12-24 07:28] LABS: BASOPHILS % 0.3 % (0.0-1.0); EOSINOPHILS # (AUTO) 0.8 (0.0-0.4); EOSINOPHILS % 8.1 % (0.0-6.0); HEMATOCRIT 39.7 % (38.2-49.6); HEMOGLOBIN 12.4 g/dL (14.0-18.0); LYMPHOCYTES # (AUTO) 1.7 (1.0-3.2); LYMPHOCYTES % 18.1 % (18.0-39.1); MEAN CORPUSCULAR HEMOGLOBIN 27.2 pg (28-32); MEAN CORPUSCULAR HGB CONC 31.2 g/dL (31-35); MEAN CORPUSCULAR VOLUME 87.1 fL (81-99); MONOCYTES # (AUTO) 0.5 (0.2-0.8); MONOCYTES % 5.4 % (4.4-11.3); NEUTROPHILS # (AUTO) 6.4 (2.1-6.9); NEUTROPHILS % 67.8 % (38.7-80.0); PLATELET COUNT 237 x10e3/uL (140-360); RED BLOOD COUNT 4.56 x10e6/uL (4.3-5.7)
[2022-12-24] MEDS: INSULIN LISPRO 100 UNIT/1 ML 3ML VIAL SQ SCH ×4 (07:30→21:00)
[2022-12-24 07:49] LABS: ALBUMIN 2.9 g/dL (3.5-5.0); ALBUMIN/GLOBULIN RATIO 0.8 (0.8-2.0); ANION GAP 12.1 mmol/L (8-16); CALCIUM 9.3 mg/dL (8.4-10.2); CREATININE, SERUM 0.8 mg/dL (0.72-1.25); MAGNESIUM 1.9 MG/DL (1.3-2.1); POTASSIUM 4.1 mmol/L (3.5-5.1)
[2022-12-24] MEDS: IRON-VITAMIN-MINERAL CAPSULE PO SCH ×2 (08:45→17:10)
[2022-12-24] MEDS: CYANOCOBALAMIN INJ 1,000 MCG/ML VIAL IM SCH (08:45)
[2022-12-24] MEDS: SPIRONOLACTONE 25 MG TAB PO SCH (08:45)
[2022-12-24] MEDS: LACTATED RINGER'S 1,000 ML INJ SCH (08:49)
[2022-12-24] MEDS: LOSARTAN POTASSIUM 25 MG TAB PO SCH (08:50)
[2022-12-24] MEDS: ATORVASTATIN 40 MG TAB PO SCH (21:33)
[2022-12-25 02:35] VITALS: BP 113/81
[2022-12-25] MEDS: ONDANSETRON HCL INJ 2MG/ML 2ML 2 MG/ML VIAL IV PRN ×2 (02:42→09:21)
[2022-12-25] MEDS: HYDROMORPHONE 1MG/1ML INJ IV PRN (02:43)
[2022-12-25 05:40] LABS: BASOPHILS # (AUTO) 0.1 (0.0-0.1); BASOPHILS % 0.7 % (0.0-1.0); EOSINOPHILS # (AUTO) 0.6 (0.0-0.4); HEMATOCRIT 35.7 % (38.2-49.6); HEMOGLOBIN 11.6 g/dL (14.0-18.0); LYMPHOCYTES # (AUTO) 1.6 (1.0-3.2); LYMPHOCYTES % 19.2 % (18.0-39.1); MEAN CORPUSCULAR HEMOGLOBIN 28.2 pg (28-32); MEAN CORPUSCULAR HGB CONC 32.5 g/dL (31-35); MEAN CORPUSCULAR VOLUME 86.7 fL (81-99); MONOCYTES # (AUTO) 0.6 (0.2-0.8); MONOCYTES % 6.7 % (4.4-11.3); NEUTROPHILS # (AUTO) 5.5 (2.1-6.9); PLATELET COUNT 204 x10e3/uL (140-360); RED BLOOD COUNT 4.12 x10e6/uL (4.3-5.7); RED CELL DISTRIBUTION WIDTH 13.7 % (11.7-14.4)
[2022-12-25 06:25] LABS: ALBUMIN 2.8 g/dL (3.5-5.0); ALBUMIN/GLOBULIN RATIO 0.8 (0.8-2.0); ANION GAP 11.7 mmol/L (8-16); CALCIUM 9.1 mg/dL (8.4-10.2); CREATININE, SERUM 0.84 mg/dL (0.72-1.25); POTASSIUM 3.7 mmol/L (3.5-5.1)
[2022-12-25] MEDS: LACTATED RINGER'S 1,000 ML INJ SCH (06:49)
[2022-12-25] MEDS: HYDROCODONE/APAP 5MG-325MG TAB PO PRN (06:49)
[2022-12-25] MEDS ORDERED: ALDACTONE25 MG PO (08:30)
[2022-12-25] MEDS ORDERED: CIPRO500 MG PO (08:30)
[2022-12-25] MEDS ORDERED: HYDROCODON-ACE1 EA11 PO (08:30)
[2022-12-25] MEDS ORDERED: METRONIDAZOLE500 MG PO (08:30)
[2022-12-25] MEDS ORDERED: ELIQUIS5 MG PO (08:30)
[2022-12-25] MEDS: INSULIN LISPRO 100 UNIT/1 ML 3ML VIAL SQ SCH ×2 (08:30→11:30)
[2022-12-25] MEDS ORDERED: COZAAR25 MG PO (08:30)
[2022-12-25] MEDS ORDERED: TOPROL XL25 MG PO (08:30)
[2022-12-25 08:50] VITALS: BP 129/84
[2022-12-25] MEDS: CYANOCOBALAMIN INJ 1,000 MCG/ML VIAL IM SCH (09:00)
[2022-12-25] MEDS ORDERED: METOPROLOL SUCCINATE 25 MG TAB XL PO SCH (09:00)
[2022-12-25] MEDS: SPIRONOLACTONE 25 MG TAB PO SCH (09:17)
[2022-12-25] MEDS: IRON-VITAMIN-MINERAL CAPSULE PO SCH (09:18)
[2022-12-25] MEDS: LOSARTAN POTASSIUM 25 MG TAB PO SCH (09:18)
[2022-12-25 10:00] VITALS: BP 129/84
[2022-12-25 12:15] VITALS: BP 128/89
[2022-12-25] MEDS ORDERED: ATORVASTATIN PO (13:48)
[2022-12-25] MEDS ORDERED: PANTOPRAZOLE SOD 40 MG TABEC PO SCH (16:30)
== END 2022-12-25 14:37 | disposition home or self-care (01) | DRG 982 ==
LOC: ER 17:13 → ERHOLD 18:23 → MED/SURG 20:15
PROVIDERS: ADMIT Internal Medicine; ATTEND Internal Medicine
PROC: 0DTN4ZZ Resection of Sigmoid Colon, Percutaneous Endoscopic Approach (ICD-10-PCS; principal; 2022-12-20 13:22)
DX: N32.1 Vesicointestinal fistula (principal); K57.32 Diverticulitis of large intestine without perforation or abscess without bleeding; K63.2 Fistula of intestine; N39.0 Urinary tract infection, site not specified; Z68.41 Body mass index [BMI] 40.0-44.9, adult; I51.3 Intracardiac thrombosis, not elsewhere classified; E11.65 Type 2 diabetes mellitus with hyperglycemia; I10 Essential (primary) hypertension; E66.01 Morbid (severe) obesity due to excess calories; B96.20 Unspecified Escherichia coli [E. coli] as the cause of diseases classified elsewhere; N20.0 Calculus of kidney; R55 Syncope and collapse; D50.9 Iron deficiency anemia, unspecified; E78.5 Hyperlipidemia, unspecified; G47.419 Narcolepsy without cataplexy; Z79.4 Long term (current) use of insulin; Z20.822 Contact with and (suspected) exposure to COVID-19
CPT/HCPCS: 36415; 70450; 71045; 74176; 80053; 81001; 82270; 82550; 82553; 82607; 82728; 82746; 82948; 83036; 83540; 83735; 84443; 84466; 84484; 85025; 85610; 85730; 87086; 87186; 88305; 88307; 93005; 93306; 94799; 96361; 96372; 99252; 99284; C1758; J0330; J0694; J1100; J1170; J1644; J1650; J1756; J2001; J2250; J2270; J2405; J2543; J2550; J2710; J3010; J3420; J3480; J7030; J7040; J7050; J7121; Q9967

== ENCOUNTER 2024-05-18 13:17 | Emergency (ER) | payer BC ==
[~2024-05-18] VITALS: Ht 177.8 cm; Wt 130.4 kg
[~2024-05-18 13:17] MED LIST: ALDACTONE25 MG PO; ATORVASTATIN PO; CIPRO500 MG PO; COZAAR25 MG PO; ELIQUIS5 MG PO; GLIMEPIRIDE4 MG PO; HYDROCODON-ACE1 EA11 PO; LISINOPRIL5 MG PO; METFORMIN HCL500 MG PO; METRONIDAZOLE500 MG PO; NAPROXEN500 MG PO; TOPROL XL25 MG PO
[2024-05-18] MEDS ORDERED: PAXLOVID 300-11 EAC1 PO (14:22)
[2024-05-18] MEDS ORDERED: BROMFED DM COU118 ML PO (14:22)
[2024-05-18 14:33] VITALS: PULSE 109; RESP 18; TEMP 99.7; O2SAT 99
[2024-05-18] MEDS ORDERED: OZEMPIC2 MG/0.75 (18:58)
== END 2024-05-18 14:33 | disposition home or self-care (01) ==
LOC: FSED 13:26
DX: R05.9 Cough, unspecified (principal); U07.1 COVID-19; I10 Essential (primary) hypertension; E11.9 Type 2 diabetes mellitus without complications; E78.5 Hyperlipidemia, unspecified
CPT/HCPCS: 0223U; 99283